=== PATIENT | female | born 1980 | race Caucasian/White ===

== ENCOUNTER → 2023-09-26 | Outpatient (REF) | payer SELFPAY ==
[2023-09-26 11:22] LABS: ALBUMIN 3.9 G/DL (3.2-5.2); BILIRUBIN,DIRECT 0.1 MG/DL (<0.4); BILIRUBIN,TOTAL 0.5 MG/DL (0.3-1.2)
== END ==
LOC: M LAB REF 10:04 → M LABWUC 10:04
PROVIDERS: ATTEND Podiatrist
DX: Z51.81 Encounter for therapeutic drug level monitoring (principal)

== ENCOUNTER → 2023-12-27 | Outpatient (CLI) | payer BC | LOC: M WUC 13:44 | PROVIDERS: ATTEND Registered Nurse | DX: M51.16 Intervertebral disc disorders with radiculopathy, lumbar region (principal); M54.50 Low back pain, unspecified; M25.551 Pain in right hip ==

== ENCOUNTER → 2024-04-16 | Outpatient (CLI) | payer BC ==
[2024-04-16 11:06] LABS: ALBUMIN 3.7 G/DL (3.2-5.2); BILIRUBIN,DIRECT 0.1 MG/DL (<0.4); BILIRUBIN,TOTAL 0.5 MG/DL (0.3-1.2); TOTAL PROTEIN 7.5 G/DL (5.7-8.2)
== END ==
LOC: M WUC 08:30
PROVIDERS: ATTEND Podiatrist
DX: Z51.81 Encounter for therapeutic drug level monitoring (principal)

== ENCOUNTER → 2024-06-03 | Outpatient (CLI) | payer BC ==
[~2024-06-03] MED LIST: CEPH500C PO; CHOL1CAP10 PO; CLAR10CA3 PO
== END ==
LOC: M CARPUL 09:06
PROVIDERS: ATTEND Specialist
DX: C50.919 Malignant neoplasm of unspecified site of unspecified female breast (principal)

== ENCOUNTER → 2025-02-13 | Outpatient (CLI) | payer BC ==
[~2025-02-13] MED LIST changes: +VITA1TAB82 PO
== END ==
LOC: M ONCR 08:14
PROVIDERS: ATTEND General Practice
DX: C50.412 Malignant neoplasm of upper-outer quadrant of left female breast (principal); Z17.0 Estrogen receptor positive status [ER+]; Z17.21 Progesterone receptor positive status; Z17.31 Human epidermal growth factor receptor 2 positive status; Z92.21 Personal history of antineoplastic chemotherapy; Z90.13 Acquired absence of bilateral breasts and nipples; Z98.890 Other specified postprocedural states; J30.89 Other allergic rhinitis

== ENCOUNTER 2025-02-25 10:56 | Outpatient (RCR) | payer BC | END 2025-03-03 | LOC: M ONCR 10:56 | PROVIDERS: ATTEND General Practice | DX: Z51.0 Encounter for antineoplastic radiation therapy (principal); C50.412 Malignant neoplasm of upper-outer quadrant of left female breast ==

== ENCOUNTER → 2025-04-03 | Outpatient (RCR) | payer BC | LOC: M ONCR 03-09 09:12 | PROVIDERS: ATTEND General Practice | DX: Z51.0 Encounter for antineoplastic radiation therapy (principal); C50.412 Malignant neoplasm of upper-outer quadrant of left female breast ==

== ENCOUNTER 2025-04-10 09:02 | Outpatient (RCR) | payer BC ==
[2025-04-19] MEDS ORDERED: BENA25CA4 PO (08:59)
[2025-04-19] MEDS ORDERED: LORA-1041 PO (09:00)
== END 2025-05-03 ==
LOC: M ONCR 09:02
PROVIDERS: ATTEND General Practice
DX: Z51.0 Encounter for antineoplastic radiation therapy (principal); C50.412 Malignant neoplasm of upper-outer quadrant of left female breast

== ENCOUNTER 2025-04-19 08:48 | Emergency (ER) | payer BC ==
[~2025-04-19] VITALS: Ht 162.6 cm; Wt 59.0 kg
[2025-04-19] MEDS ORDERED: BENA25CA4 PO (08:59)
[2025-04-19] MEDS ORDERED: LORA-1041 PO (09:00)
[2025-04-19] MEDS: FAMOTIDINE 20 MG/2 ML VIAL IVP ONE (11:34)
[2025-04-19] MEDS: diphenhydrAMINE 50 MG/ML VIAL IV ONE (11:34)
[2025-04-19 14:11] VITALS: BP 96/59; TEMP 98.7; O2SAT 100
== END 2025-04-19 14:18 | disposition home or self-care (01) ==
LOC: M ED 08:48
DX: T78.40XA Allergy, unspecified, initial encounter (principal); C50.919 Malignant neoplasm of unspecified site of unspecified female breast; Z91.09 Other allergy status, other than to drugs and biological substances; Z79.899 Other long term (current) drug therapy
CPT/HCPCS: 96374; 96375; 99284; J1100; J1200; J1308

== ENCOUNTER 2025-05-14 11:01 | Emergency (ER) | payer BC ==
[~2025-05-14] VITALS: Ht 162.6 cm; Wt 58.3 kg
[~2025-05-14 11:01] MED LIST changes: +BENA25CA4 PO; +LORA-1041 PO
[2025-05-14 11:05] VITALS: TEMP 98.1
[2025-05-14 12:27] LABS: BASO # 0.0 10^3/uL (0.0-0.2); BASO % 0.7 % (0.0-1.0); EOS # 0.4 10^3/uL (0.0-0.5); EOS % 9.4 % (0.0-3.0); LYMPH # 0.5 10^3/uL (1.5-5.0); LYMPH % 10.3 % (24.0-44.0); MONO # 0.5 10^3/uL (0.0-0.8); MONO % 12.1 % (2.0-8.0); NEUTROPHILS # 2.9 10^3/uL (1.5-8.5); NEUTROPHILS % 67.3 % (36.0-66.0)
[2025-05-14 12:42] LABS: CALCIUM LEVEL 8.8 MG/DL (8.5-10.1); CARBON DIOXIDE LEVEL 27 MMOL/L (20-31); CHLORIDE LEVEL 106 MMOL/L (98-107); CREATININE FOR GFR 0.75 MG/DL (0.55-1.30); GLOMERULAR FILTRATION RATE > 90.0 (>58); POTASSIUM SERUM 3.5 MMOL/L (3.5-5.1); SODIUM LEVEL 142 MMOL/L (136-145)
[2025-05-14 12:43] LABS: PLATELET COUNT, AUTOMATED 55 10^3/uL (150-450)
[2025-05-14 13:30] VITALS: O2SAT 98
[2025-05-14] MEDS ORDERED: [UNRECOGNIZED DRUG - OTHER] (13:32)
[2025-05-14 13:38] VITALS: BP 93/66
== END 2025-05-14 13:46 | disposition home or self-care (01) ==
LOC: M ED 11:01
DX: D69.6 Thrombocytopenia, unspecified (principal); C50.919 Malignant neoplasm of unspecified site of unspecified female breast; Z91.09 Other allergy status, other than to drugs and biological substances; Z91.041 Radiographic dye allergy status; Z79.899 Other long term (current) drug therapy